=== PATIENT | male | born 1940 | race Caucasian/White ===

== ENCOUNTER 2021-04-02 08:00 | Outpatient (RCR) | payer MEDICARE, SELFPAY ==
--- NOTE | 2021-03-24 15:38 | OTOPEVAL ---
OCCUPATIONAL THERAPY INITIAL EVAUATION REPORT 03/24/21 David is a 80 year-old, right handed male who sustained a nerve compression injury in the upper arm 10 days ago. 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 Skilled OT indicated for ROM, splinting, positioning education, edema control, and HEP instruction and progression to facilitate optimal functional use of the right hand. Thank you for referring David Uriarte to [facility].? The patient is scheduled to be seen for therapy? 1-2x/week for 4 weeks. Please review, sign, date and return this plan of care ANGIE. I agree with and certify that the following plan of care is medically necessary. Referring Physician Date Referring Provider: Osorio Rockwell, *OT Outpatient Evaluation Start: 03/24/21 13:32 Neurological History Hx Transient Ischemic Attacks (TIA) Yes: 03/14/21 Cardiovascular History Hx Cardiac Disorders No Significant History Respiratory History Hx Respiratory Disorders No Significant History Musculoskeletal History Hx Musculoskeletal Disorders No Significant History Evaluation Information Problem Diagnosis Right hand paresthesias secondary to nerve injury Subjective Information On 03/14/21, patient had a TIA Query Text:As Reported By Patient/ which caused him to fall and Family his right arm got stuck between the bed and the wall. His upper arm was stuck for about 2 hours and since then he has had difficulties moving his hand. 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 He reports being unable to use the right hand for any gripping or fine motor tasks. His helps tie his shoes. Prior Level of Function Activity Level (Last 3 Months) Hand Dominance Right Pain Assessment Timing of Pain Assessment Timing of Pain Assessment Assessment Pain Scale Pain Scale Used Numeric (1 - 10) Self Report Pain Assessment Right Hand(s) Reported Pain Level 1 Lowest Pain Intensity 0 Greatest Pain Intensity 10 Pain Score Pain Score 1: Self Report Interventions Used Interventions Used By Clinicians Education,Exercise Upper Extremity Range of Motion Scapular/ Shoulder Range of Motion Right Reason Not Measured WNL/Right Elbow/Forearm Range of Motion Right Elbow/Forearm Range of Motion Comments Elbow flex/ext is WNL Supination is WNL. Only able to pronate to neutral. Passive is WNL. Wrist Range of Motion Right
--- NOTE | 2021-04-02 08:54 | OTOPEVAL ---
OCCUPATIONAL THERAPY RE-EVALUATION REPORT AND DISCHARGE SUMMARY 04/02/21 Patient presents today, just 3 weeks shy of nerve compression injury. He has been diligently passively stretching the forearm, wrist, and fingers and has made great progress with his flexibility and reduced pain with passive motion. Unfortunately the wrist and finger flexors as well as the intrinsic muscles continue to show no signs of return. We trialed splinting and e-stim, but as described below, the patient is unable to tolerate either. Recommend that the patient continue to work on his flexibility and monitor for signs of nerve return. Recommend that they follow up with neurology for a nerve conduction study. Discharging today with the patient and his independent with all materials. Thank you for referring David Uriarte to [facility]. Please review, sign, date and return this D/C Note ANGIE. I agree with and certify that the following plan of care is medically necessary. Referring Physician Date Referring Provider: Osorio Rockwell, *OT Outpatient Re-Evaluation Start: 03/24/21 13:32 Problem Diagnosis Right hand paresthesias secondary to nerve injury Additional Evaluation Detail On 03/14/21, patient had a TIA which caused him to fall and his right arm got stuck between the bed and the wall. His upper arm was stuck for about 2 hours and since then he has had difficulties moving his hand. Subjective Information David was evaluated by OT on Query Text:As Reported By Patient/ 03/24/21. He was issued Family active and passive ROM exercises. The next follow up session, a resting hand splint was fabricated and issued. Today was our final follow up session to trial e-stim, which unfortunately did not respond successfully. Pain Assessment Timing of Pain Assessment Timing of Pain Assessment Assessment Pain Scale Pain Scale Used Numeric (1 - 10) Self Report Pain Assessment Right Hand(s) Reported Pain Level 0 Pain Score Pain Score 0: Self Report Additional Pain Score Comments At the start of care, patient had 10/10 pain with passive hand/finger ROM. Today he has no pain with passive ROM exercises. He reports experiencing nerve pain the past two nights that shoots down the arm . Interventions Used Interventions Used By Clinicians Education,Exercise Upper Extremity Muscle Strength Testing Elbow/Forear
== END 2021-04-02 14:32 | disposition home or self-care (01) ==
LOC: ANHOT 08:00
PROVIDERS: PCP Internal Medicine; Visit Provider Internal Medicine
DX: S64.9 Injury of unspecified nerve at wrist and hand level (principal); R20.2 Paresthesia of skin
CPT/HCPCS: 97110; 97165; L3806

== ENCOUNTER 2021-04-16 11:08 | Emergency (ER) | payer MEDICARE, SELFPAY ==
--- NOTE | ~2021-04-16 | US_ITS ---
EXAMINATION: US venous doppler UE RT DATE: 04/16/2021 16:22 INDICATION: Right upper limb swelling. TECHNIQUE: Grayscale ultrasound images without and with compression and Doppler ultrasound images of the right upper extremity veins were obtained. COMPARISON: None. FINDINGS: The visualized portions of the right internal jugular vein, subclavian vein, axillary vein, brachial veins, basilic vein, cephalic vein, radial vein, and ulnar vein are patent. IMPRESSION: 1. No deep venous thrombosis. Reviewed, dictated and finalized at location A. ON INSTALLER
--- NOTE | ~2021-04-16 | XR_ITS ---
EXAMINATION: XR hand RT min 3V EXAM DATE: 04/16/2021 16:01 INDICATION: Rt hand pain/swelling; injury,fall 03/14/21 . Pain and swelling onset started yesterday. TECHNIQUE: Right hand frontal, lateral and oblique projections obtained and reviewed. There is no pr ior study for comparison. FINDINGS: There is subchondral lucency identified on both sides of the right 3rd MCP joint, regions o f indistinct cortices. There is diffuse soft tissue swelling over the dorsum of the hand. Triangular fibrocartilage chondrocalcinosis. Chondrocalcinosis can be an age related finding, but with other pos sible etiologies including CPPD, parathyroid disorders, hemochromatosis, gout. Moderate polyarticular primary osteoarthritis. No periosteal reaction to suggest subacute fracture. No acute fracture line identified. No radiopaque foreign bodies identified. IMPRESSION: 1. Abnormal appearing right 3rd MCP joint, appearance suspicious for inflammatory arthropathy, inclu ding possibility of septic joint. CPPD or other acute inflammatory arthropathy also possible. 2. Moderate polyarticular osteoarthritis. 3. Chondrocalcinosis. Reviewed, dictated and finalized at location A. OMA MAKER IMPRESSION: 1. Abnormal appearing right 3rd MCP joint, appearance suspicious for inflammat ory arthropathy, including possibility of septic joint. CPPD or other acute inf lammatory arthropathy also possible. 2. Moderate polyarticular osteoarthritis. 3. Chondrocalcinosis.
[2021-04-16 11:27] VITALS: BP 147/105; PULSE 94; RESP 16; TEMP 37.2; O2SAT 98
--- NOTE | 2021-04-16 16:04 | ED.GENADULT ---
HPI - General Adult General Chief complaint: Extremity Injury, Upper <FAVIOLA Cho Last Filed: 04/16/21 20:01> Stated complaint: hand swelling s/p injury <FAVIOLA Cho Last Filed: 04/16/21 20:01> Time Seen by Provider: 04/16/21 15:32 <Yi Peres PA-C - Last Filed: 04/16/21 20:01> Source: patient and family () <FAVIOLA Cho Last Filed: 04/16/21 20:01> Mode of arrival: ambulatory <FAVIOLA Cho Last Filed: 04/16/21 20:01> History of Present Illness HPI narrative: Patient is 80-year-old male with chief complaint of swelling to his right hand that has increased over the past day. Patient reports that his initial injury occurred on 03-14-2021. He reports that he fell on his right arm with impingement between the bed and the mattress for multiple hours into his came home. Patient states that he was taken to [facility] and had a lot of testing and imaging performed. He states after a few days he was discharged home. He reports decreased ROM to the right arm since the accident and reports they had a brace on the wrist to hold it straight but he took it off because it worsened the pain and swelling. He reports he has been alternating warm and cool compresses. He reports he still has sensation to the extremity. He denies having any fractures. He states he is on a baby aspirin daily but denies any blood thinners. He denies fever, chills, nausea, vomiting, etc. <Yi Peres PA-C - Last Filed: 04/16/21 20:01> Related Data Allergies/adverse reactions: Allergies Allergy/AdvReac Type Severity Reaction Status Date / Time No Known Allergies Allergy Unknown Verified 04/16/21 16:43 <FAVIOLA Cho Last Filed: 04/16/21 20:01> Review of Systems Review of Systems: CONSTITUTIONAL: Denies fever, chills, or sweats. EYES: Denies visual changes, redness, or discharge. ENT: Denies rhinorrhea, congestion, sore throat, or otalgia. CARDIOVASCULAR: Denies chest pain, palpitations, or edema. RESPIRATORY: Denies cough or dyspnea. GASTROINTESTINAL: Denies abdominal pain, nausea, vomiting, or diarrhea. GENITOURINARY: Denies dysuria or hematuria. SKIN: Denies rash or itching. MUSCULOSKELETAL: Reports right hand pain and swelling Denies back pain, joint pain, or myalgia. NEUROLOGIC: Denies headache, numbness, dizziness, or weakness. PSYCHIATRIC: Denies anxiety or depression. <FAVIOLA Cho Last Filed: 04/16/21 20:01> Exam Narrative: GENERAL: Well-appearing, well-nourished, and in no acute distress. HEAD: Normocephalic, atraumatic. EYES: PERRLA and EOMI. CHEST: Clear to auscultation. No respiratory distress. No wheezes rales or rhonchi HEART: Regular rate and rhythm. No murmur heard. Normal peripheral pulses. EXTREMITIES: Significant swelling with increased warmth to right hand. cap refill intact. radial pulse palpable. Patient reports intense pain with any touching of the hand. No tenderness proximal to the wrist. Patient reports he felt some swellings in the upper arm but cant feel them now. Patient can slightly flex digits, ROM severely limited. No crepitus. SKIN: Warm, dry, no rash. NEURO: No focal deficits. Alert and oriented x3. PSYCH: Normal mood and affect. <FAVIOLA Cho Last Filed: 04/16/21 20:01> Course Vital Signs Vital signs: Vital Signs Temperature 98.9 F 04/16/21 11:27 Pulse Rate 94 04/16/21 11:27 Respiratory Rate 16 04/16/21 11:27 Blood Pressure 147/105 H 04/16/21 11:27 Pulse Oximetry 98 04/16/21 11:27 Temperature 99.8 F H 04/16/21 16:39 Pulse Rate 73 04/16/21 18:55 Respiratory Rate 18 04/16/21 18:55 Blood Pressure 120/85 04/16/21 18:55 Pulse Oximetry 97 04/16/21 18:55 <FAVIOLA Cho Filed: 04/16/21 20:01> Medical Decision Making MDM Narrative Medical decision making narrative: Consult with Dr. Flores regarding patient's presentation, lab work, imaging and h
[2021-04-16 16:39] VITALS: BP 141/99; PULSE 99; RESP 16; TEMP 37.7; O2SAT 97
[2021-04-16] MEDS: HYDROcodone/acetaminophen (*CRX) 5-325 MG TABLET 1 TAB PO (17:18)
[2021-04-16 17:27] LABS: Basophils Percent Auto 0.3 % (0.2-1.2); Eosinophils Percent Auto 0.1 % (0-4.4); Hematocrit 43.3 % (42.0-52.0); Hemoglobin 14.8 g/dL (14.0-18.0); Immature Granulocyte Absolute 0.01 K/mm3 (0.00-0.031); Immature Granulocyte Percent A 0.1 % (0-0.5); Lymphocytes Absolute Auto 1.01 K/mm3 (0.9-3.2); Lymphocytes Percent Auto 13.1 % (18.3-44.2); Mean Corpuscular HGB Conc 34.2 g/dl (32-36); Mean Corpuscular Hemoglobin 29.5 pg (26-34); Mean Corpuscular Volume 86.4 fl (80-100); Mean Platelet Volume 11.3 fl (7.4-10.4); Monocytes Absolute Auto 0.9 K/mm3 (0.1-0.6); Monocytes Percent Auto 11.5 % (2.6-8.5); Neutrophils Absolute Auto 5.8 K/mm3 (1.3-6.7); Neutrophils Percent Auto 74.9 % (45.5-73.1); Platelet Count Result 182 k/mm3 (150-375); Red Blood Count 5.01 M/mm3 (4.6-6.20); Red Cell Distribution Width 12.2 % (11.5-14.5); White Blood Count 7.7 K/mm3 (4.5-10.0)
[2021-04-16 17:44] LABS: Alanine Aminotransferase 33 U/L (4-50); Albumin Level 4.8 g/dL (3.5-5.1); Alkaline Phosphatase 91 U/L (38-126); Anion Gap 9 mmol/L (8-16); Aspartate Amino Transferase 33 U/L (17-59); Bilirubin,Total 1.5 mg/dL (0.2-1.3); Blood Urea Nitrogen 20 mg/dL (9-20); CRP 4.9 mg/dL (<1.0); Calcium 9.6 mg/dL (8.4-10.2); Carbon Dioxide 29 mmol/L (22-30); Chloride 98 mmol/L (98-107); Estimated CRCL calculation 59 ml/min; Estimated Glomerular Filt Rate > 60; Glucose 118 mg/dL (65-110); Potassium 4.3 mmol/L (3.4-5.0); Sodium 136 mmol/L (137-145)
[2021-04-16 18:22] LABS: Erythrocyte Sedimentation Rate 18 mm/hr (0-20)
[2021-04-16 18:55] VITALS: BP 120/85; PULSE 73; RESP 18; O2SAT 97
== END 2021-04-16 18:56 | disposition home or self-care (01) ==
PROVIDERS: Physician Assistant; Emergency Provider General Practice; PCP Internal Medicine
DX: M10.9 Gout, unspecified (principal)
CPT/HCPCS: 36415; 73130; 80053; 85025; 85652; 86140; 93971; 99284; A9270

== ENCOUNTER 2021-04-17 08:49 | Outpatient (CLI) | payer MEDICARE, SELFPAY ==
--- NOTE | 2021-04-17 11:00 | NEURO_ITS ---
Impression: # Complains of injury to right forearm. # Right median nerve injury involving median nerve proximal to wrist with involvement of pronator teres muscle as well. # No ulnar nerve involvement. # Clinical correlation recommended. Nerve Conduction Studies Anti Sensory Summary Table Stim Site NR Peak (ms) P-T Amp (?V) Site1 Site2 Delta-P (ms) Dist (cm) Michael (m/s) Right Median Anti Sensory (2-3nd Digit) NO RESPONSE Wrist NR Wrist 2-3nd Digit 14.0 Wrist NR Wrist 2-3nd Digit 14.0 Right Radial Anti Sensory (Base 1st Digit) Wrist 2.0 5.5 Wrist Base 1st Digit 2.0 0.0 Right Ulnar Anti Sensory (5th Digit) Wrist 2.9 33.2 Wrist 5th Digit 2.9 14.0 48 Motor Summary Table Stim Site NR Onset (ms) O-P Amp (mV) Site1 Site2 Delta-0 (ms) Dist (cm) Michael (m/s) Right Median Motor (Abd Poll Brev) NO RESPONSE Wrist NR Elbow Wrist 26.0 Elbow NR Right Ulnar Motor (Abd Dig Minimi) Wrist 2.9 1.4 A Elbow Wrist 5.6 31.0 55 A Elbow 8.5 0.9 F Wave Studies NR F-Lat (ms) L-R F-Lat (ms) Right Median (Mrkrs) (Abd Poll Brev) NO RESPONSE NR Right Ulnar (Mrkrs) (Abd Dig Min) NO RESPONSE NR EMG Side Muscle Nerve Root Ins Act Fibs Amp Dur Recrt Comment Right 1stDorInt Ulnar C8-T1 Nml Nml Nml Nml Nml Right Ext Indicis Radial (Post Int) C7-8 Nml Nml Nml Nml Nml Right Ext Digitorum Radial (Post Int) C7-8 Nml Nml Nml Nml Nml Right BrachioRad Radial C5-6 Nml Nml Nml Nml Nml Right PronatorTeres Median C6-7 Incr Nml Decr >12ms Reduced Right Abd Poll Brev Median C8-T1 Incr Nml Decr >12ms Reduced Right Abd Poll Long Radial (Post Int) C7-8 Nml Nml Nml Nml Nml MTDD
== END 2021-04-17 08:50 | disposition home or self-care (01) ==
PROVIDERS: PCP Internal Medicine; Visit Provider Internal Medicine
DX: M79.601 Pain in right arm (principal); M61.2 Paralytic calcification and ossification of muscle; S54.11XA Injury of median nerve at forearm level, right arm, initial encounter
CPT/HCPCS: 95886; 95909

== ENCOUNTER → 2021-07-17 10:06 | Outpatient (REF) | payer MEDICARE, SELFPAY | LOC: ANHLAB 10:06 | PROVIDERS: PCP Internal Medicine; Visit Provider Nurse Practitioner | DX: C44.329 Squamous cell carcinoma of skin of other parts of face (principal) | CPT/HCPCS: 88305 ==

== ENCOUNTER → 2021-08-25 10:08 | Outpatient (REF) | payer MEDICARE, SELFPAY | LOC: ANHLAB 10:08 | PROVIDERS: PCP Internal Medicine; Visit Provider Nurse Practitioner | DX: C44.329 Squamous cell carcinoma of skin of other parts of face (principal) | CPT/HCPCS: 88305; 88331 ==

== ENCOUNTER 2021-09-05 08:00 | Outpatient (RCR) | payer MEDICARE, SELFPAY ==
--- NOTE | 2021-07-22 08:50 | OTOPEVAL ---
OCCUPATIONAL THERAPY INITIAL EVALUATION REPORT 07/22/21 Thank you for referring David Uriarte to [facility] [place].? The patient is scheduled to be seen for therapy? 1-2x/week for 5 weeks. Please review, sign, date and return this plan of care ANGIE. I agree with and certify that the following plan of care is medically necessary. 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 Since then he has been dx with median neuropathy. He reports that since the injury he has noticed improvement in active motion. His biggest complaint today is that his arm continues to be weak and that his fingers are extremely stiff. Prior Level of Function Activity Level (Last 3 Months) Hand Dominance Right Activity of Daily Living Ability Independent Indoor/Home Mobility Independent Community Mobility Independent Stairs Ability Independent Functional Cognition (Planning, Shopping Independent , Taking Medications) Pain Assessment Timing of Pain Assessment Timing of Pain Assessment Assessment Self Report Self Report Pain Level 0 Pain Score Pain Score 0: Self Report Upper Extremity Range of Motion Elbow/Forearm Range of Motion Right Forearm Supination - Active 90 Forearm Pronation - Active 50 Forearm Pronation - Passive 90 Elbow/Forearm Range of Motion Muscle Weakness Limitations Wrist Range of Motion Right Wrist Flexion - Active 60 Wrist Extension - Active 60 Wrist Radial Deviation - Active 5 Wrist Ulnar Deviation - Active 30 Finger Range of Motion Right Finger Range of Motion Comments MCPs: II: 50* III: 50* IV
--- NOTE | 2021-09-05 09:08 | OTOPEVAL ---
OCCUPATIONAL THERAPY RE-EVALUATION AND DISCHARGE SUMMARY 09/05/21 Roland presents for OT re-evaluation after 5 sessions for right UE median neuropathy. Improvements noted in pronation and wrist flexion strength. He also has improved flexibility and improved tolerance to passive ROM of the finger flexors. He continues to have limited active flexion of the radial 2 digits. The thumb IP/FPL also is bending 15* more degrees on its own. Overall there is slow progress. At this time he is currently independent with forearm/wrist strengthening, passive ROM of the fingers, and has various devices to continue to work on gripping with the hopes that the long finger flexors will start activating soon. No further skilled OT indicated at this time. D/C with patient independent and compliant with all materials. Thank you for referring David Uriarte to [facility]. Please review, sign, date and return this D/C Note ANGIE. I agree with and certify that the following plan of care is medically necessary. 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 Since then he has been dx with median neuropathy. Patient reports improvements in the last month since working with therapy. He states his fingers are more flexible and his wrist is moving better. He states his fingers continue to be very stiff and are not bending into a fist yet. Pain Assessment Timing of Pain Assessment Timing of Pain Assessment Re-assessment Self Report Self Report Pain Level 0 Pain Score Pain Score 0: Self Report Additional Pain Score Comments No pain at rest or with active motion. With passive flexion of the fingers, his pain increases to 7/10. Upper Extremity Range of Motion Elbow/Forearm Range of Motion Right Forearm Supination - Active 90 Forearm Pronation - Active 70 Forearm Pronation - Passive 90 Elbow/Forearm Range of Motion Comments Active pronation improved from 50* to 70*. Wrist Range of Motion Right Wrist Flexion - Active 60 Wrist Extension - Active 60 Wrist Radial Deviation - Active 15 Wrist Ulnar Deviation - Active 30 Wrist Range of Motion Comments Active wrist RD improved from 5* to 15*.
== END 2021-09-09 10:16 | disposition home or self-care (01) ==
LOC: ANHOT 08:00
PROVIDERS: PCP Internal Medicine
DX: G56.11 Other lesions of median nerve, right upper limb (principal)
CPT/HCPCS: 97018; 97110; 97140; 97165

== ENCOUNTER 2022-01-13 08:00 | Outpatient (RCR) | payer MEDICARE, SELFPAY ==
--- NOTE | 2021-11-12 11:27 | OTOPEVAL ---
OCCUPATIONAL THERAPY INITIAL EVALUATION REPORT 11/12/21 Thank you for referring David Uriarte to [facility]Note 3[facility]? The patient is scheduled to be seen for therapy? 1-2x/week for 6 weeks. Please review, sign, date and return this plan of care ANGIE. I agree with and certify that the following plan of care is medically necessary. Referring Physician Date Referring Provider: Marialuisa Whitt MD Outpatient Past Medical History Neurological History Hx Transient Ischemic Attacks (TIA) Yes: 03/14/21 Cardiovascular History Hx Cardiac Disorders No Significant History Respiratory History Hx Respiratory Disorders No Significant History Musculoskeletal History Hx Musculoskeletal Disorders No Significant History Evaluation Information Problem Diagnosis Right median and ulnar nerve injury Additional Evaluation Detail Procedure 10/24/21: Decompression of right median nerve forearm with step lengthening tenotomy of the superficial head of the pronator teres and full tenotomy of the deep head of the pronator teres, decompression of right median nerve in the arm and decompression of right ulnar nerve in the arm with the excision of [place] arc[place]. Subjective Information Right UE hx: On 04/11/21, the Query Text:As Reported By Patient/ patient had a TIA which caused Family him to fall and his right UE got stuck between the bed and the wall x2 hours. Since this incident he has had median neuropathy. He has been experiencing progressive stiffness, weakness, and muscle atrophy. He works diligently on passive ROM of the fingers. He notes that since his surgery he has improved thumb and finger flexion. 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 This is his dominant hand. Pain Assessment Timing of Pain Assessment Timing of Pain Assessment Assessment Self Report Self Report Pain Level 0 Pain Score Pain Score
--- NOTE | 2021-12-05 10:55 | OTOPEVAL ---
OCCUPATIONAL THERAPY PROGRESS REPORT AND THERAPY HOLD NOTIFICATION 12/05/21 Roland has been attending outpatient hand therapy sessions x3 weeks s/p median nerve decompression surgery on 10/24/21. ROM improvements have been noted with forearm pronation, wrist flexion, and finger flexion (with the exception of the DIPs of digits II and III). He is using his hand for more ADL tasks, but continues to be limited with fine motor due to lack of tip pinching between thumb, index, and middle fingers. At this time we are putting therapy on hold as he is to undergo another surgery scheduled for 12/09/21. Will wait for new therapy orders to continue. Thank you for this referral. Thank you for referring David Uriarte to [facility]. Please review, sign, date and return this plan of care ANGIE. I agree with and certify that the following plan of care is medically necessary. Referring Physician Date Referring Provider: Marialuisa Whitt MD Re-Evaluation Information Problem Diagnosis Right median and ulnar nerve injury Additional Evaluation Detail Procedure 10/24/21: Decompression of right median nerve forearm with step lengthening tenotomy of the superficial head of the pronator teres and full tenotomy of the deep head of the pronator teres, decompression of right median nerve in the arm and decompression of right ulnar nerve in the arm with the excision of [place] arcade. Subjective Information Right UE hx: On 04/11/21, the Query Text:As Reported By Patient/ patient had a TIA which caused Family him to fall and his right UE got stuck between the bed and the wall x2 hours. Since this incident he has had median neuropathy. He has been working with outpatient hand therapy since 11/12/21. Focus has been on restoring functional ROM/ flexibility of the right hand. 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 He has had no pain. 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 Index and
--- NOTE | 2021-12-18 09:12 | PCOTNOTE ---
Talked with patient on the phone today. He had his second surgery. Goes back to see surgeon next week for follow up and stitch removal. Informed him to get new therapy orders at that time. He verbalizes good understanding.
--- NOTE | 2021-12-26 10:19 | OTOPREEVAL ---
Assessment and note entered by Abdelrahman Sood, MALIKR/Divya, CHT Evaluation Information Assessment Status Re-evaluation Diagnosis Severe right median and ulnar neuropathy Subjective Information Procedure 10/24/21: Decompression of right median nerve forearm with step lengthening tenotomy of the superficial head of the pronator teres and full tenotomy of the deep head of the pronator teres, decompression of right median nerve in the arm and decompression of right ulnar nerve in the arm with the excision of [place] arcade. Re-evaluation today s/p procedure on 12/09/21: Nerve transfer of the AIN to the ulnar motor nerve in the forearm. Nerve transfer of the abductor digiti minimi nerve to the deep motor branch of the ulnar nerve in Guyon's canal. Nerve transfer of 2 allografts each 2.5 cm in length, 2-3 mm in diameter from the ulnar sensory to the median sensory in the palm. Profundus tenodesis from the weak median profundus to the index and long finger to the stronger ulnar profundus to the 4th and 5th digits. Carpal tunnel decompression. Decompression of ulnar nerve, deep motor branch, through Guyon's canal. Tendon transfer of the palmaris longus for thumb opposition ([place]) tendon transfers. David presents today in a dorsal blocking splint, which positions the thumb in palmar abduction, wrist neutral. Reported Pain Level Pain Score 0: Self Report Assessment OT Clinical Summary Roland returns today for therapy re-evaluation after right UE nerve transfers, tendon transfers, and nerve decompressions - more details above. He presents with new orders today to begin active/ passive ROM of the fingers, thumb flexion, and active ROM of the wrist/forearm. He was instructed in the above HEP and completes with some cues for thoroughness. He is to continue to wear the dorsal blocking splint between exercises and was instructed in keeping the thumb in palmar abduction when out of the splint. Will continue to see 1-2x/week for 4 weeks for suture removal and HEP progression as tolerated. Plan of Care Interventions Therapeutic Exercise,Manual Therapy,Neuro Re- education,Therapeutic Activities,Hot Pack/Cold Pack,Self-Care/Home Management,Check Out for Orthotic/Pr,Paraffin OT Servic
--- NOTE | 2022-01-13 11:26 | OTOPPROG ---
Assessment and note entered by [employer] Stokes/Divya, CHT Evaluation Information Assessment Status Progress Diagnosis Severe right median and ulnar neuropathy Subjective Information Procedure 10/24/21: Decompression of right median nerve forearm with step lengthening tenotomy of the superficial head of the pronator teres and full tenotomy of the deep head of the pronator teres, decompression of right median nerve in the arm and decompression of right ulnar nerve in the arm with the excision of [place]. Procedure on 12/09/21: Nerve transfer of the AIN to the ulnar motor nerve in the forearm. Nerve transfer of the abductor digiti minimi nerve to the deep motor branch of the ulnar nerve in Guyon' s canal. Nerve transfer of 2 allografts each 2.5 cm in length, 2-3 mm in diameter from the ulnar sensory to the median sensory in the palm. Profundus tenodesis from the weak median profundus to the index and long finger to the stronger ulnar profundus to the 4th and 5th digits. Carpal tunnel decompression. Decompression of ulnar nerve , deep motor branch, through Guyon's canal. Tendon transfer of the palmaris longus for thumb opposition ([place]) tendon transfers. David presents today for progress update following 3 weeks of therapy focusing on ROM. He is no longer in the dorsal blocking splint. Reporting no pain and reporting good compliance with HEP. He states he notices improved ability to make a fist and to pinch items like a zipper with the right hand. Assessment OT Clinical Summary Roland returns today for therapy progress updated after another 3 weeks of therapy focusing on ROM, functional coordination, nerve transfer training, and scar management. His functional ROM is progressing. Active pronation continues to be limited at 65 degrees actively. Wrist ROM is WFL. An active fist continues to be limited with the radial two digits, however he is progressing toward touching the palm. Active DIP flexion of the radial two digits continues to be limited also , however the index finger is now bending about 30 degrees. He is working diligently on his HEP. At this time he is to follow up with MD next week () and then return to therapy as indicated by MD. Continued skilled therapy indicated to
--- NOTE | 2022-02-05 09:14 | PCOTNOTE ---
This treatment is being continued on visit number [id number]. Please see documentation on both accounts to view progress. Completed interventions, outcomes, and problems have been marked as Inactive to facilitate the copying of the Care plan routine for recurring accounts.
== END 2022-02-05 09:06 | disposition home or self-care (01) ==
LOC: ANHOT 08:00
PROVIDERS: PCP Internal Medicine
DX: G56.00 Carpal tunnel syndrome, unspecified upper limb (principal)
CPT/HCPCS: 97018; 97110; 97140; 97166; 97168

== ENCOUNTER 2022-02-18 07:30 | Outpatient (RCR) | payer MEDICARE, SELFPAY ==
--- NOTE | 2022-02-05 09:15 | PCOTNOTE ---
This treatment is being continued on current chart number [id number] from previous chart number [id number]. Please see documentation on both accounts to view progress. Completed interventions, outcomes, and problems have been marked as Inactive to facilitate the copying of the Care plan routine for recurring accounts.
--- NOTE | 2022-02-12 10:39 | OTOPPROG ---
Assessment and note entered by [employer] Silva/Divya Evaluation Information Assessment Status Evaluation Subjective Information Patient reports since last visit (01/13/2022) there is less sensitivity in hand and increased range of motion of hand. Patient reports still decreased strength in R hand Assessment OT Clinical Summary David returns for therapy following updated orders on strengthening pronation, incorporating intrinsic muscle phase 1 exercises, tendon transfer training of PL to opponens of thumb, in addition to continued restriction of no weights or testing tech strengthening and no over stretching of opponens tendon transfer. Patient demonstrated good progress of functional active ROM. Active pronation continues to be limited at 70 degrees. An active fist is limited with index and middle fingers, but is progressing well with touching palm with tips of fingers. Patient continues to be diligent with all HEP materials. Patient was educated on new exercises and demonstrated good understanding of new materials. At this time he is to follow up next week for fabrication of index and middle finger gutter splints to maintain digit extension during exercises. Patient will then continue therapy as indicated by MD due to patient and going to [place] for the winter. Continued skilled therapy indicated to progress HEP, functional therapeutic exercises, modalities, manual therapy, active/passive ROM and strengthening to facilitate optimal functional j luis of dominant R hand. Plan of Care Interventions Therapeutic Exercise,Manual Therapy,Neuro Re- education,Therapeutic Activities,Hot Pack/Cold Pack,Self-Care/Home Management,Check Out for Orthotic/Pr,Paraffin OT Services Indicated Yes Treatment Frequency and x1 additional treatment prior to patient going to [facility] for winter, progress as indicated by MD. These treatments will address the objective and functional deficits as defined above. The patient will be advanced safely and appropriately in order for the patient to progress towards his/her prior level of function. Additional exercises will be introduced and as well as a comprehensive home exercise program upon discharge, if needed, ?to ensure carryover of functional gains achieved in the clinic. This treatment plan has been reviewed and agreement upon by the patient.
--- NOTE | 2022-03-17 11:55 | OTOPDC ---
Assessment and note entered by Gabby Benson OTR/L Evaluation Information Assessment Status Discharge - Pt Not Present Assessment OT Clinical Summary Due to patient going to [place] for the next 6 months patient will be Discharged from skilled occupational therapy at this time. New orders will be needed to continue OT. Plan of Care OT Services Indicated No
== END 2022-03-31 10:28 | disposition home or self-care (01) ==
LOC: ANHOT 07:30
PROVIDERS: PCP Family Medicine
DX: G56.00 Carpal tunnel syndrome, unspecified upper limb (principal)
CPT/HCPCS: 97110; 97760; L3921

== ENCOUNTER 2022-11-09 07:30 | Outpatient (RCR) | payer MEDICARE, SELFPAY ==
--- NOTE | 2022-09-09 09:51 | OTOPEVAL1 ---
Assessment and note entered by [employer] Stokes/Divya, CHT Evaluation Information Assessment Status Evaluation Diagnosis Joint stiffness of right hand, right hand paresthesia, median neuropathy Onset 03/2021 Subjective Information Patient reporting stiffness and weakness in the right hand. Reporting difficulties with any sort of heavy lifting and reporting no pinch strength. States he is also experiencing some hypersensitivities in the fingers. He is right hand dominant. He states he has difficulties with opposing the thumb and index finger which restricts his fine motor control to pinch picker packer small objects. Surgical history - 12/09/21: Nerve transfer of the anterior interosseus nerve to the ulnar motor nerve in the forearm, nerve transfer of the abductor digiti minimi nerve to the deep motor branch of the ulnar nerve in Guyon's canal, nerve transfer of 2 allografts from the ulnar sensory to the median sensory in the palm. Profundus tenodesis from the index and long to ring and small fingers. Carpal tunnel decompression. Ulnar nerve decompression through Guyon's canal. Tendon transfer of the palmaris longus for thumb opposition. Reported Pain Level Pain Score 0: Self Report Additional Pain Score Comments No pain at rest. Reporting some hypersensitivity in the finger tips when touching objects or tapping his fingers on the table, he feels tingling up his arm. Assessment OT Clinical Summary Patient referred to outpatient hand therapy with right hand stiffness and weakness following multiple right UE surgeries, involving nerve grafts and tendon transfers to restore right hand function due to median and ulnar neuropathy. Limitations include finger stiffness, particularly in the DIPs of digits II and III which is restricting his fine motor control as well as being able to make a gross fist. He also is demonstrating some residual exceptional children teacher and pinch weakness. Skilled OT indicated to facilitate optimal functional hand use of his right, dominant hand. Plan of Care Interventions Therapeutic Exercise,Manual Therapy,Neuro Re- education,Therapeutic Activities,Hot Pack/Cold
--- NOTE | 2022-09-09 09:51 | OPREHPOC ---
Outpatient Therapy Plan of Care This is a Multidisciplinary Plan of Care that may contain components documented by all disciplines (PT, OT, and ST.) OT Problem 1 OT Problem #1 Knowledge Deficit OT Goal 1 Goal 1. Patient to be independent with all instructed materials. Target Visit 6 OT Problem 2 OT Problem #2 Impaired Range of Motion OT Goal 1 Goal 1. Improve functional gross fist as demonstrated by having no greater than 3 cm gap between the finger tips and the palm when trying to make a fist. Target Visit 6 OT Problem 3 OT Problem #3 Impaired Strength OT Goal 1 Goal 1. Increase functional geophysical manager strength of the right hand from 36 to 46 lbs. 2. Increase functional lateral pinch strength of the right hand from 7 lbs. to 10 lbs. 3. Increase functional palmar pinch strength of the right hand from 2 lbs. to 5 lbs. 4. Increase functional tip pinch strenght of the right hand from 1 to 3 lbs. Target Visit 6
--- NOTE | 2022-10-08 09:48 | OTOPPROG ---
Assessment and note entered by ISIS Stokes/Divya, CHT Evaluation Information Assessment Status Progress Diagnosis Joint stiffness of right hand, right hand paresthesia, median neuropathy Onset 03/2021 Subjective Information Patient has not been to a session since 09/14/22 due to having a knee replacement. He has been compliant with his HEP - heat, ROM, vibration, and passive prolonged stretching via finger straps. He has been compensating for lack of tip-tip pinch between the thumb and index finger by using a lateral pinch. He states he mobilizes the DIP joint frequently, but it always returns to being stiff. He notes his hypersensitivity is decreasing. Since taking measurements on 09/09/22: Being able to make a composite fist has improved. Tip to palm measurement improved by 2 cm for the index finger and 1 cm for the middle finger. Ring and small are WNL. The DIP of the index finger improved by 20 degrees (now bends to 35 deg.). The middle finger remained at 30 degrees. The thumb is now WFL - the IP flexes 65 degrees. Surgical history - 12/09/21: Nerve transfer of the anterior interosseus nerve to the ulnar motor nerve in the forearm, nerve transfer of the abductor digiti minimi nerve to the deep motor branch of the ulnar nerve in Guyon's canal, nerve transfer of 2 allografts from the ulnar sensory to the median sensory in the palm. Profundus tenodesis from the index and long to ring and small fingers. Carpal tunnel decompression. Ulnar nerve decompression through Guyon's canal. Tendon transfer of the palmaris longus for thumb opposition. Assessment OT Clinical Summary Patient referred to outpatient hand therapy with right hand stiffness and weakness following multiple right UE surgeries, involving nerve grafts and tendon transfers to restore right hand function due to median and ulnar neuropathy. Limitations include finger stiffness, particularly in the DIPs of digits II and III which is restricting his fine motor control as well as being able to make a gross fist. Since beginning therapy 4 weeks ago he has improved functional flexion of the fingers as well as improved carlos
--- NOTE | 2022-10-08 11:00 | OPREHPOC ---
Outpatient Therapy Plan of Care This is a Multidisciplinary Plan of Care that may contain components documented by all disciplines (PT, OT, and ST.) PT Problem 1 PT Problem #1 Knowledge Deficit PT Goal 1 Goal 1. Patient will perform independent HEP Target Visit 6 PT Problem 2 PT Problem #2 Pain PT Goal 1 Goal 1. No pain with sleeping or ADL's Target Visit 6 PT Problem 3 PT Problem #3 Impaired Range of Motion PT Goal 1 Goal 1. Improve knee extension to 0 for gait pattern Target Visit 6 PT Problem 4 PT Problem #4 Impaired Strength PT Goal 1 Goal 1. Improve right knee extension to 5/5 Target Visit 6 OT Problem 1 OT Problem #1 Knowledge Deficit OT Goal 1 Goal 1. Patient to be independent with all instructed materials. Target Visit 8 Progress Met Comment OT POC UPDATE 10/08/22 1. Met, continue as HEP is progressed. OT Problem 2 OT Problem #2 Impaired Range of Motion OT Goal 1 Goal 1. Improve functional gross fist as demonstrated by having no greater than 3 cm gap between the finger tips and the palm when trying to make a fist. Target Visit 8 Progress Partially Met Comment OT POC UPDATE 10/08/22 1. Progressing, continue OT Problem 3 OT Problem #3 Impaired Strength OT Goal 1 Goal 1. Increase functional custodian manager strength of the right hand from 36 to 46 lbs. 2. Increase functional lateral pinch strength of the right hand from 7 lbs. to 10 lbs. 3. Increase functional palmar pinch strength of the right hand from 2 lbs. to 5 lbs. 4. Increase functional tip pinch strenght of the right hand from 1 to 3 lbs. Target Visit 8 Progress Partially Met Comment OT POC UPDATE 10/08/22 1. Increased to 40 lbs., continue goal 2. Not met, continue 3. Not met, continue
--- NOTE | 2022-10-08 11:01 | PTOPEVAL1 ---
Assessment and note entered by Mignon Chua DPT Evaluation Information Assessment Status Evaluation Subjective Information Pt had R TKA on 09/17/22. Has been trying to do exercises, did have home health for awhile. Highest pain 1/10 and lowest 0/10. Pt reports difficulty sleeping due to pain, walking slower. Has been driving, dressing, bathing independently. Able to cook and clean. No stairs at home, and no issues with 1 stair to his house. Patient goal: get rid of pain. Previous TIA. Will be getting other knee done in 3 weeks. Reported Pain Level Pain Score 0: Self Report Pain Score 0: Self Report Additional Pain Score Comments Patient has no pain at rest. With passive prolonged stretching he reports 10/10 pain in the fingers. Assessment PT Clinical Summary The patient is presenting to skilled therapy s/p R TKA on 09/17/22. He presents with decreased knee extension, strength and gait impairments which are contributing to his pain and difficulty sleeping. He will benefit from therapy to address these impairments in order to return to prior level. Plan of Care Interventions Electrical Stimulation,Gait Training,Hot Pack/Cold Pack,Manual Therapy,Neuro Re-education,Patient/ Caregiver Education,Therapeutic Activities, Therapeutic Exercise,Self-Care/Home Management PT Services Indicated Yes Treatment Frequency and 2 times a week for 3 weeks Duration These treatments will address the objective and functional deficits as defined above. The patient will be advanced safely and appropriately in order for the patient to progress towards his/her prior level of function. Additional exercises will be introduced and as well as a comprehensive home exercise program upon discharge, if needed, ?to ensure carryover of functional gains achieved in the clinic. This treatment plan has been reviewed and agreement upon by the patient.
--- NOTE | 2022-11-02 09:30 | OPREHPOC ---
Outpatient Therapy Plan of Care This is a Multidisciplinary Plan of Care that may contain components documented by all disciplines (PT, OT, and ST.) PT Problem 1 PT Problem #1 Knowledge Deficit PT Goal 1 Goal 1. Patient will perform independent HEP Target Visit 14 Progress Partially Met PT Problem 2 PT Problem #2 Pain PT Goal 1 Goal 1. No pain with sleeping or ADL's Target Visit 14 Progress Partially Met PT Problem 3 PT Problem #3 Impaired Range of Motion PT Goal 1 Goal 1. Improve knee extension to 0 for gait pattern Target Visit 14 Progress Partially Met Comment improved to 8 from neutral PT Problem 4 PT Problem #4 Impaired Strength PT Goal 1 Goal 1. Improve right knee extension to 5/5 Target Visit 14 Progress Not Met OT Problem 1 OT Problem #1 Knowledge Deficit OT Goal 1 Goal 1. Patient to be independent with all instructed materials. Target Visit 8 Progress Met Comment OT POC UPDATE 10/08/22 1. Met, continue as HEP is progressed. OT Problem 2 OT Problem #2 Impaired Range of Motion OT Goal 1 Goal 1. Improve functional gross fist as demonstrated by having no greater than 3 cm gap between the finger tips and the palm when trying to make a fist. Target Visit 8 Progress Partially Met Comment OT POC UPDATE 10/08/22 1. Progressing, continue OT Problem 3 OT Problem #3 Impaired Strength OT Goal 1 Goal 1. Increase functional manual arts therapy teacher strength of the right hand from 36 to 46 lbs. 2. Increase functional lateral pinch strength of the right hand from 7 lbs. to 10 lbs. 3. Increase functional palmar pinch strength of the right hand from 2 lbs. to 5 lbs. 4. Increase functional tip pinch strenght of the right hand from 1 to 3 lbs. Target Visit 8
--- NOTE | 2022-11-02 09:30 | PTOPPROG ---
Assessment and note entered by Mignon Chua DPT Evaluation Information Assessment Status Progress Subjective Information Pt reports his knee is feeling pretty good overall but does get some medial pain from time to time. Not even a 1/10 in the last week. Improvements with sleeping at this time. Reports his gait is still slower than normal, balance feels off but no recent falls. Assessment PT Clinical Summary The patient has made good progress in therapy and demonstrates improved knee flexion and extension and improved gait speed. He reports minimal pain at this time but does still walk slower than prior to surgery. He continues to lack full strength and full knee extension (8 from neutral). Due to his progress but continued limitations he will benefit from further therapy to progress toward full function. Plan of Care Interventions Electrical Stimulation,Gait Training,Hot Pack/Cold Pack,Manual Therapy,Neuro Re-education,Patient/ Caregiver Education,Therapeutic Activities, Therapeutic Exercise PT Services Indicated Yes Treatment Frequency and 2 times a week for 4 weeks Duration These treatments will address the objective and functional deficits as defined above. The patient will be advanced safely and appropriately in order for the patient to progress towards his/her prior level of function. Additional exercises will be introduced and as well as a comprehensive home exercise program upon discharge, if needed, ?to ensure carryover of functional gains achieved in the clinic. This treatment plan has been reviewed and agreement upon by the patient.
--- NOTE | 2022-11-09 08:02 | OTOPDC ---
Assessment and note entered by Abdelrahman Sood, ISIS/Divya, CHT Discharge Summary Diagnosis Joint stiffness of right hand, right hand paresthesia, median neuropathy Onset 03/2021 Subjective Information Patient reports improved flexibility of index and middle fingers. He has been compliant with his HEP - heat, ROM, vibration, and passive prolonged stretching via finger straps. He states his hand is working well, is able to use it for most ADL tasks. Reports being unable to open a small screw top, such as a soda lid. Reports continuous stinging in the index and middle finger tips. Since taking measurements on 10/08/22: ROM of the index and middle fingers remained unchanged. Index has 4 cm gap from the tip to the palm and the middle finger as a 3 gm gap. Neuropathologist and pinch strengths have remained unchanged. Neuropathologist 42 lbs, lateral pinch 5 lbs, palmar pinch 2 lbs, and tip pinch 1 lb. He continues to compensate for lack of tip-tip functioning by using a lateral pinch for fine motor tasks. 9-hole peg test today was 52 seconds with the right hand. Surgical history - 12/09/21: Nerve transfer of the anterior interosseus nerve to the ulnar motor nerve in the forearm, nerve transfer of the abductor digiti minimi nerve to the deep motor branch of the ulnar nerve in Guyon's canal, nerve transfer of 2 allografts from the ulnar sensory to the median sensory in the palm. Profundus tenodesis from the index and long to ring and small fingers. Carpal tunnel decompression. Ulnar nerve decompression through Guyon's canal. Tendon transfer of the palmaris longus for thumb opposition. Reported Pain Level Pain Score 0: Self Report Assessment OT Clinical Summary Patient referred to outpatient hand therapy with right hand stiffness and weakness following multiple right UE surgeries, involving nerve grafts and tendon transfers to restore right hand function due to median and ulnar neuropathy. Limitations include finger stiffness, particularly in the DIPs of digits II and III which is restricting his fine motor control as well as being able to make a gross fist. At this time functional ROM and strength is reaching a progress plateau. Plan to dischar
--- NOTE | 2022-11-10 08:43 | PTOPDC ---
Assessment and note entered by Mignon Chua DPT Evaluation Information Assessment Status Discharge - Pt Not Present Subjective Information - Reported Pain Level Pain Score 0: Self Report Assessment PT Clinical Summary The patient is discharging due to getting his second knee surgery. Will start PT again per surgeon's orders. Plan of Care PT Services Indicated No
--- NOTE | 2022-11-10 12:35 | PCPTNOTE ---
Patient called & cancelled scheduled appointment this date due to no reason given
== END 2022-11-16 16:01 | disposition home or self-care (01) ==
LOC: ANHOT 07:30
PROVIDERS: PCP Family Medicine
DX: M25.641 Stiffness of right hand, not elsewhere classified (principal); R20.2 Paresthesia of skin; G56.10 Other lesions of median nerve, unspecified upper limb
CPT/HCPCS: 97018; 97110; 97112; 97140; 97161; 97166; 97530

== ENCOUNTER 2023-02-11 08:00 | Outpatient (RCR) | payer MEDICARE, SELFPAY ==
--- NOTE | 2022-12-15 11:57 | OPREHPOC ---
Outpatient Therapy Plan of Care This is a Multidisciplinary Plan of Care that may contain components documented by all disciplines (PT, OT, and ST.) PT Problem 1 PT Problem #1 Knowledge Deficit PT Goal 1 Goal [place] with HEP Target Visit 4 PT Problem 2 PT Problem #2 Edema PT Goal 1 Goal Demonstrate 1 cm+ reduction in L joint line edema indicating soft tissue healing Target Visit 8 PT Problem 3 PT Problem #3 Impaired Range of Motion PT Goal 1 Goal Achieve L knee terminal knee extension for improved gait cycle Target Visit 8 PT Goal 2 Goal Achieve 125 degrees of left knee flexion for improve functional squatting and foot clearence Target Visit 8 PT Problem 4 PT Problem #4 Impaired Gait PT Goal 1 Goal Demonstrate even stride length bilaterally Target Visit 8
--- NOTE | 2022-12-15 11:57 | PTOPEVAL1 ---
Assessment and note entered by Dhaval Barnard, PT Evaluation Information Assessment Status Evaluation Diagnosis Left Total Knee Arthroplasty, Left knee pain Onset 11/17/22 Subjective Information Reports that he is doing well overall. His right knee has been doing great. Left knee still swollen and he has been trying to control it. He has been walking without an AD and feels comfortable doing it. He does not have to do stairs often but denies issues with them one at a time. He had home health for approximately 3 weeks. He has exercises from his R knee and has been doing them at home. Reported Pain Level Pain Score 1: Self Report Assessment PT Clinical Summary Patient presents with signs and symptoms consistent with post operative total knee arthroplasty. Demonstrate joint line edema and lack of terminal knee extension affecting functional activity and gait. He is showing excellent knee flexion at this time and is motivated to improve as he is returning to [place] in January. Plan of Care Interventions Gait Training,Hot Pack/Cold Pack,Manual Therapy, Neuro Re-education,Therapeutic Activities, Therapeutic Exercise PT Services Indicated Yes Treatment Frequency and 2x/week for 4 weeks Duration These treatments will address the objective and functional deficits as defined above. The patient will be advanced safely and appropriately in order for the patient to progress towards his/her prior level of function. Additional exercises will be introduced and as well as a comprehensive home exercise program upon discharge, if needed, ?to ensure carryover of functional gains achieved in the clinic. This treatment plan has been reviewed and agreement upon by the patient.
--- NOTE | 2023-01-11 15:16 | OPREHPOC ---
Outpatient Therapy Plan of Care This is a Multidisciplinary Plan of Care that may contain components documented by all disciplines (PT, OT, and ST.) PT Problem 1 PT Problem #1 Knowledge Deficit PT Goal 1 Goal Hocking with HEP Target Visit 4 Progress Met PT Problem 2 PT Problem #2 Edema PT Goal 1 Goal Demonstrate 1 cm+ reduction in L joint line edema indicating soft tissue healing Target Visit 8 Progress Met PT Problem 3 PT Problem #3 Impaired Range of Motion PT Goal 1 Goal Achieve L knee terminal knee extension for improved gait cycle Target Visit 8 Progress Partially Met Comment Improved but not met PT Goal 2 Goal Achieve 125 degrees of left knee flexion for improve functional squatting and foot clearance Target Visit 8 Progress Met PT Problem 4 PT Problem #4 Impaired Gait PT Goal 1 Goal Demonstrate even stride length bilaterally Target Visit 8 Progress Partially Met Comment Improved but still lacking L LE with compensation PT Problem 5 PT Problem #5 Impaired Balance PT Goal 1 Goal Patient will demonstrate no lateral LOB with tanemd walk for improved stability with ADLs.
--- NOTE | 2023-01-11 15:16 | PTOPPROG ---
Assessment and note entered by Dhaval Barnard, PT Evaluation Information Assessment Status Progress Diagnosis Left Total Knee Arthroplasty, Unsteady gait Onset 11/17/22 Subjective Information Reports that he feels the knees are coming along well. Still has weakness that he can feel when walking. Feels that his balance is off a lot due to now having both knees worked on. Would like to continue therapy to emphasize balance and stability. Assessment PT Clinical Summary Patient has seen significant improvement in swelling, ROM, and gait at this time. Still showing gait instability and lack of even stride bilaterally with gait leading to fall risk and increased muscle demand with ADLs leading to increased fatigue. Will continue to benefit from skilled therapy to address these deficits at this time. Emphasis will be made on gait and balance moving forward while trying to maximize terminal stance. Plan of Care Interventions Gait Training,Hot Pack/Cold Pack,Manual Therapy, Neuro Re-education,Therapeutic Activities, Therapeutic Exercise PT Services Indicated Yes Treatment Frequency and 2x/week for 4 weeks Duration These treatments will address the objective and functional deficits as defined above. The patient will be advanced safely and appropriately in order for the patient to progress towards his/her prior level of function. Additional exercises will be introduced and as well as a comprehensive home exercise program upon discharge, if needed, ?to ensure carryover of functional gains achieved in the clinic. This treatment plan has been reviewed and agreement upon by the patient.
--- NOTE | 2023-02-11 08:46 | PTOPDC ---
Assessment and note entered by Dhaval Barnard, PT Discharge Information Assessment Status Discharge Diagnosis Left Total Knee Arthroplasty, Unsteady gait Onset 11/17/22 Subjective Information Reports that overall he is doing a lt better. Still has some concerns for his balance but it has improved as well. He plans to return to [place] next week. Feels suitable for discharge at this time. Reported Pain Level Pain Score 0: Self Report Assessment PT Clinical Summary Patient has met all goals for therapy at this time with exception of terminal knee extension. Has a good understanding of HEP and is suitable for discharge to continue HEP in [place]. Plan of Care PT Services Indicated No
== END 2023-02-11 11:40 | disposition home or self-care (01) ==
LOC: ANHPT 08:00
PROVIDERS: PCP Family Medicine
DX: Z47.1 Aftercare following joint replacement surgery (principal); Z96.652 Presence of left artificial knee joint
CPT/HCPCS: 97110; 97112; 97140; 97161; 97530; 99199

== ENCOUNTER 2023-02-22 14:00 | Outpatient (RCR) | payer MEDICARE, SELFPAY ==
--- NOTE | 2023-02-08 08:23 | OTOPEVAL1 ---
Assessment and note entered by Abdelrahman Sood, ISIS/Divya, CHT Evaluation Information Assessment Status Evaluation Diagnosis Carpal tunnel syndrome on the left Subjective Information Patient comes in today reporting no pain and no paresthesias. He reports about a month ago he was having so much pain he couldn't close his hand. He 's been wearing an immobilizer at night and quite a bit during the day. He states his hand is feeling much better. He is no longer waking up in the night with pain. Reported Pain Level Pain Score 0: Self Report Assessment OT Clinical Summary Patient referred to OT with dx of carpal tunnel syndrome. Evaluation today demonstrating no pain, no paresthesias, and no sensory deficit. Measurements also show intact functional strength and coordination. Issued tendon glides and putty for strengthening. Plan to have him follow up once more in 2 weeks to progress HEP and assess for discharge. Plan of Care Interventions Therapeutic Exercise,Manual Therapy,Paraffin OT Services Indicated Yes Treatment Frequency and Follow up in 2 weeks. Duration These treatments will address the objective and functional deficits as defined above. The patient will be advanced safely and appropriately in order for the patient to progress towards his/her prior level of function. Additional exercises will be introduced and as well as a comprehensive home exercise program upon discharge, if needed, ?to ensure carryover of functional gains achieved in the clinic. This treatment plan has been reviewed and agreement upon by the patient.
--- NOTE | 2023-02-08 08:24 | OPREHPOC ---
Outpatient Therapy Plan of Care This is a Multidisciplinary Plan of Care that may contain components documented by all disciplines (PT, OT, and ST.) OT Problem 1 OT Problem #1 Knowledge Deficit OT Goal 1 Goal 1. Patient to be independent with instructed materials. Target Visit 2 OT Problem 2 OT Problem #2 Impaired Sensation OT Goal 1 Goal 1. Patient to report continued absence of paresthesias in the left hand. Target Visit 2 OT Problem 3 OT Problem #3 Impaired Strength
--- NOTE | 2023-02-22 14:33 | OTOPDC ---
Assessment and note entered by Abdelrahman Sood, ISIS/Divya, CHT Discharge Summary 02/22/23 Diagnosis Carpal tunnel syndrome on the left Subjective Information Patient comes in today reporting no pain and no paresthesias. Still wearing a brace at night and during the day. Has been completing nerve and tendon gliding HEP. He is no longer waking up in the night with pain. Reported Pain Level Pain Score 0: Self Report Assessment OT Clinical Summary Patient referred to OT with dx of carpal tunnel syndrome. Re-assessment completed today. Pt demonstrating no pain, no paresthesias, and no sensory deficit. Measurements also show intact functional strength and coordination. Reviewed HEP to work on tendon glides an strengthening. Discharging OT.
== END 2023-02-23 08:38 | disposition home or self-care (01) ==
LOC: ANHOT 14:00
PROVIDERS: PCP Family Medicine
DX: G56.02 Carpal tunnel syndrome, left upper limb (principal)
CPT/HCPCS: 97110; 97165